=== PATIENT | male | born 1970 | race American Indian/Alaskan Native ===

== ENCOUNTER 2016-11-26 20:14 | Emergency (ER) | payer OTHER ==
[2016-11-26 20:18] VITALS: BMI 36.0
[2016-11-26 20:24] VITALS: BP 126/75; PULSE 79; RESP 18; TEMP 98.1; O2SAT 98
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
== END 2016-11-26 22:06 | disposition home or self-care (01) ==
LOC: C.ER 20:14 → SUPCPDRO 20:14 → C.ER 22:06
DX: S16.1XXA Strain of muscle, fascia and tendon at neck level, initial encounter (principal); S39.012A Strain of muscle, fascia and tendon of lower back, initial encounter; S46.911A Strain of unspecified muscle, fascia and tendon at shoulder and upper arm level, right arm, initial encounter; V43.52XA Car driver injured in collision with other type car in traffic accident, initial encounter; Y92.410 Unspecified street and highway as the place of occurrence of the external cause
CPT/HCPCS: 72125; 72131; 73030; 96372; 99284; J1885